=== PATIENT | female | born 1975 | race Caucasian/White ===

== ENCOUNTER 2025-03-13 15:37 | Emergency (ER) | payer BC, SELFPAY ==
[2025-03-13 15:51] VITALS: BP 156/84; PULSE 78; RESP 16; TEMP 37; O2SAT 97; BMI 27.3
--- NOTE | 2025-03-13 18:33 | DI.CT.S_ITS ---
PROCEDURE: CT LUMBAR SPINE W CON INDICATIONS: post back pump drainage TECHNIQUE: After the administration of intravenous Isovue contrast, 3 mm thick sections acquired through the levels of interest. Sagittal and coronal reformats were then constructed. For radiation dose reduction, the following was used: automated exposure control. COMPARISON: None. FINDINGS: Image quality: Motion artifact. Bones: Multilevel degenerative changes with disc height loss, vacuum disc phenomenon, osteophytosis and facet arthropathy. No high-grade osseous central canal or neural foraminal stenosis. Soft tissues: Spinal cord stimulator in place. No fluid collections are seen around the area of the pump. Cholecystectomy. Simple appearing renal cysts. Punctate nonobstructing bilateral renal calcifications. Splenule is noted. Simple appearing right ovarian cyst measuring 2.2 cm. IMPRESSION: Spinal cord stimulator in place. No fluid collections are noted around the area of the pump. Multilevel degenerative changes of the lumbar spine. Please see above for additional findings. Dictated by: Maxwell Small M.D. on 03/13/2025 at 19:53 Approved by: Maxwell Small M.D. on 03/13/2025 at 19:58
[2025-03-13 19:13] LABS: Add Manual Diff / Slide Review NO; Basophils Absolute Auto 0 /uL (0-100); Basophils Percent Auto 0.5 % (0-2); Eosinophils Absolute Auto 100 /uL (0-450); Eosinophils Percent Auto 1.8 % (2-4); Hematocrit 35.7 % (36-46); Hemoglobin 12.6 g/dL (12.0-16.0); Lymphocytes Absolute Auto 1700 /uL (1100-4500); Lymphocytes Percent Auto 25.5 % (25-40); Mean Corpuscular HGB Conc 35.2 % (30-36); Mean Corpuscular Hemoglobin 31.6 PG (26-34); Mean Corpuscular Volume 89.8 fL (80-100); Monocytes Absolute Auto 400 /uL (0-900); Monocytes Percent Auto 6.2 % (3-14); Neutrophils Absolute Auto 4500 /uL (1500-7000); Platelet Count 270 X10^3/uL (150-400); Red Blood Cell Count 3.98 X10^6/uL (4.0-5.2); Red Cell Distribution Width 15.3 % (11.6-14.8); White Blood Cell Count 6.8 X10^3/uL (4.5-11.0)
[2025-03-13 19:19] LABS: Lactate (Lactic Acid) 0.7 mmol/L (0.7-2.1)
[2025-03-13 19:23] LABS: Alanine Aminotransferase 42 IU/L (<35); Albumin 4.8 g/dL (3.5-5.0); Albumin Globulin Ratio 1.8 (1.0-2.8); Alkaline Phosphatase 61 U/L (38-126); Aspartate Aminotransferase 48 IU/L (14-36); BUN Creatinine Ratio 26.7 (6-22); Blood Urea Nitrogen 16 mg/dL (7-17); C-Reactive Protein Quant < 0.5 mg/dL (<1.0); Calcium 9.4 mg/dL (8.4-10.2); Carbon Dioxide 26 mmol/L (22-32); Chloride 103 mmol/L (98-107); Estimated Glomerular Filt Rate > 60 mL/min (>60); Globulin 2.6 g/dL (1.7-4.1); Glucose 91 mg/dL (70-100); HEMOLYSIS 26 (0-50); Potassium 3.9 mmol/L (3.4-5.1); Sodium 137 mmol/L (137-145); Total Protein 7.4 g/dL (6.3-8.2)
[2025-03-13 19:33] LABS: Erythrocyte Sedimentation Rate 5 MM/HR (0-20)
--- NOTE | 2025-03-13 20:21 | ED_ITS ---
HPI - Back Pain/Injury General Chief Complaint: Back Pain/Injury Stated Complaint: thinks seroma needs to be drained Time Seen by Provider: 03/13/25 20:18 Source: patient History of Present Illness HPI Narrative: Patient is a 49-year-old female history of degenerative disc disease had a pain pump replacement in [place] end of January. She reports that she has had recurrent postoperative seromas around the surrounding site. She has had it drained a couple of times getting about 100 cc off. Last night she noticed that she had swelling again. No fever or chills. No numbness tingling weakness no change in bowel or bladder habits. She reports excellent improvement in her back pain since the pump placement. She was very tearful and stressed. She just moved from [place] to the area continuing to have postoperative complications. She was given place that she can get pump refills however has not established care with anyone. Related Data Allergies Allergy/AdvReac Type Severity Reaction Status Date / Time buspirone [From BuSpar] Allergy Vomiting Verified 03/13/25 15:51 Patient History Social History Smoking Status: Never smoker Smoking Status: Never smoker Exam Initial Vital Signs Initial Vital Signs: Vital Signs Temperature 98.6 F 03/13/25 15:51 Pulse Rate 78 03/13/25 15:51 Respiratory Rate 16 03/13/25 15:51 Blood Pressure 156/84 H 03/13/25 15:51 Pulse Oximetry 97 03/13/25 15:51 Oxygen Delivery Method Room Air 03/13/25 15:51 GENERAL: Alert pleasant tearful 41-year-old female and in no acute distress. HEENT: Head atraumatic,EOMI, pupils reactive, face symmetric, moist mucous membranes CARDIOVASCULAR: Regular rate and rhythm without murmurs, rubs or gallops. RESPIRATORY: Breath sounds equal bilaterally, no wheezes rales or rhonchi. ABDOMEN: Soft, nontender. Normoactive bowel sounds all 4 quadrants. No guarding or rebound. EXTREMITIES: Normal range of motion, no clubbing or edema. Neurovascularly intact NEUROLOGICAL: Alert and oriented x4.Normal gait and speech. Cranial nerves II through XII grossly intact. Sensation in lower extremities intact able to stand SKIN: Incision site along the back noted left laterally she definitely has subcutaneous swelling without erythema it is nontender is blow audible. Consistent with seroma is fluid collection Course Orders Ordered: ED Orders 03/13/25 18:33 CT lumbar spine w con Stat 03/13/25 18:58 CBC Auto Diff [Complete Blood Count AUTO DIFF] Stat CMP [Comprehensive Metabolic Panel] Stat CRP [C-Reactive Protein Quant] Stat ESR [Erythrocyte Sedimentation Rate] Stat Lactate (Lactic Acid) Stat 03/13/25 19:27 Blood Culture Stat Discontinued Medications Ketorolac Tromethamine (Ketorolac 30 Mg/Ml Vial) 15 mg IV NOW ONE Stop: 03/13/25 20:19 Last Admin: 03/13/25 20:25 Dose: 15 mg Documented By: ELKIN Vital Signs Vital signs: Vital Signs - 8 hr 03/13/25 20:46 Pulse Rate 80 Respiratory Rate 18 Blood Pressure 131/91 H Pulse Oximetry 99 Oxygen Delivery Method Room Air MDM - Back Pain/Injury Lab Data 03/13/25 18:58 03/13/25 18:58 Labs: Lab Results 03/13/25 Range/Units 18:58 WBC 6.8 (4.5-11.0) X10^3/uL RBC 3.98 L (4.0-5.2) X10^6/uL Hgb 12.6 (12.0-16.0) g/dL Hct 35.7 L (36-46) % MCV 89.8 (80-100) fL MCH 31.6 (26-34) PG MCHC 35.2 (30-36) % RDW 15.3 H (11.6-14.8) % Plt Count 270 (150-400) X10^3/uL Neut % (Auto) 66.0 (50-75) % Lymph % (Auto) 25.5 (25-40) % [place] % (Auto) 6.2 (3-14) % Eos % (Auto) 1.8 L (2-4) % Baso % (Auto) 0.5 (0-2) % Neut # (Auto) 4500 (1713-8993) /uL Lymph # (Auto) 1700 (6448-2836) /uL [place] # (Auto) 400 (0-900) /uL Eos # (Auto) 100 (0-450) /uL Baso # (Auto) 0 (0-100) /uL ESR 5 (0-20) MM/HR Sodium 137 (137-145) mmol/L Potassium 3.9 (3.4-5.1) mmol/L Chloride 103 (98-107) mmol/L Carbon Dioxide 26 (22-32) mmol/L BUN 16 (7-17) mg/dL Creatinine 0.60 (0.52-1.04) mg/dL Estimated GFR > 60 (>60) mL/min BUN/Creatinine Ratio 26.7 H (6-22) Glucose 91 (70-100) mg/dL Lactate 0.7 (0.7-2.1) mmol/L Calcium 9.4 (8.4-10.2) mg/dL Total Bilirubin 1.0 (0.2-1.3) mg/dL AST 48 H (14-36) IU/L ALT 42 H (<35) IU/L Alkaline Phosphatase 61 (38-126) U/L C-Reactive Protein < 0.5 (<1.0) mg/dL Total Protein 7.4 (6.3-8.2) g/dL Albumin 4.8 (3.5-5.0) g/dL Globulin 2.6 (1.7-4.1) g/dL Albumin/Globulin Ratio 1.8 (1.0-2.8) Imaging Data Ct lumbar w contrast: Radiologist's Impression: PROCEDURE: CT LUMBAR SPINE W CON INDICATIONS: post back pump drainage TECHNIQUE: After the administration of intravenous Isovue contrast, 3 mm thick sections acquired through the levels of interest. Sagittal and coronal reformats were then constructed. For radiation dose reduction, the following was used: automated exposure control. COMPARISON: None. FINDINGS: Image quality: Motion artifact. Bones: Multilevel degenerative changes with disc height loss, vacuum disc phenomenon, osteophytosis and facet arthropathy. No high-grade osseous central canal or neural foraminal stenosis. Soft tissues: Spinal cord stimulator in place. No fluid collections are seen around the area of the pump. Cholecystectomy. Simple appearing renal cysts. Punctate nonobstructing bilateral renal calcifications. Splenule is noted. Simple appearing right ovarian cyst measuring 2.2 cm. IMPRESSION: Spinal cord stimulator in place. No fluid collections are noted around the area of the pump. Multilevel degenerative changes of the lumbar spine. Please see above for additional findings. Dictated by: Maxwell Small M.D. on 03/13/2025 at 19:53 MDM Narrative Medical decision making narrative: Patient is a 49-year-old female history degenerative disc disease with pain pump placement. She definitely has subcutaneous skin swelling to the left lateral area. It is non erythematous nontender. Blood work has been reviewed overall reassuring. She has no leukocytosis normal inflammatory markers. ESR 5, CRP less than 0.5. CT does not show any evidence of fluid collection around the pain pump. Also noted on the CT is no soft tissue swelling. Patient neurovascularly intact no concern for cauda equina. No concern for sepsis. Not able to get an MRI due to pain pump. Discussed with her that if she needs an MRI maybe to go to different facility. Given a shot of Toradol here in the ED, supportive care only. She has a back brace. Discussion about signs and symptoms and when to return to ED. Patient verbalized understanding. Discharge Plan Departure Patient Disposition: Home Clinical Impression: Postoperative seroma Activity Restrictions/Additional Instructions: *You have been diagnosed with postoperative seroma *What to do: At this time continue supportive care compression try ice. *Continue to take medications as directed *Follow up with your primary care provider in 2-3 days or call [phone] May trying get referral to Dr. Cohen'rj or orthopedic [facility] here in [facility] *Return to ER if you should have increasing pain swelling numbness tingling weakness loss of urine fever or any new, worsening or concerning symptoms Stand Alone Forms: Patient Portal/API/Survey
[2025-03-13] MEDS: KETOROLAC 30 MG/ML VIAL 15 MG IV (20:25)
[2025-03-13 20:46] VITALS: BP 131/91; PULSE 80; RESP 18; O2SAT 99
== END 2025-03-13 20:49 | disposition home or self-care (01) ==
PROVIDERS: Emergency Provider Emergency Medicine
DX: L76.34 Postprocedural seroma of skin and subcutaneous tissue following other procedure (principal)
CPT/HCPCS: 36415; 72132; 80053; 83605; 85025; 85651; 86140; 87040; 99284; J1885; Q9967

== ENCOUNTER 2025-09-27 13:20 | Emergency (ER) | payer OTHER, SELFPAY ==
[2025-09-27 13:29] VITALS: BP 133/77; PULSE 85; RESP 18; TEMP 37.1; O2SAT 98; BMI 30.2
--- NOTE | 2025-09-27 13:34 | DI.RAD.S_ITS ---
PROCEDURE: XR ANKLE LT MIN 3V INDICATIONS: pain/swelling TECHNIQUE: 3 views of the ankle were acquired. COMPARISON: None. FINDINGS: Bones: No fractures or dislocations. Ankle mortise is normally aligned. No suspicious bony lesions. Soft tissues: No tibiotalar joint effusion. Achilles tendon appears normal. IMPRESSION: No acute bony abnormality or significant effusion. Dictated by: Christo Walden M.D. on 09/27/2025 at 14:29 Approved by: Christo Walden M.D. on 09/27/2025 at 14:29
--- NOTE | 2025-09-27 14:44 | ED.EXTPRO ---
HPI - Extremity Problem <Leighton Arroyo PA-C - Last Filed: 10/18/25 18:48> General Chief complaint: Extremity Problem,Nontraumatic Stated complaint: Low L leg, swollen, pn Time Seen by Provider: 09/27/25 14:39 Source: patient Mode of arrival: Ambulatory History of Present Illness HPI Narrative: This is a 50-year-old female presenting to the emergency department due to left calf for the last 2 months. She states that it may have began after she did some heavy moving. She states that the distal portion of her left calf has been swollen and after showers she reports some seeing some redness. Denies any numbness but does have some pain with range motion of the foot. No acute blunt injury to the area. Related Data Allergies Allergy/AdvReac Type Severity Reaction Status Date / Time buspirone (From [place]) Allergy Vomiting Verified 03/13/25 15:51 Review of Systems <Leighton Arroyo PA-C - Last Filed: 10/18/25 18:48> Review of Systems Narrative: GENERAL: Denies chills, fatigue, malaise, fever, sweats. HEENT: Denies sinus pain, ear pain, sore throat, difficulty swallowing, dizziness. RESPIRATORY: Denies dyspnea, cough, wheezing, hemoptysis, sputum. CARDIOVASCULAR: Denies chest pain, palpitations, orthopnea, edema, GASTROINTESTINAL: Denies nausea, vomiting, abdominal pain, diarrhea, constipation, melena. : Denies dysuria, frequency, incontinence, hematuria, urinary retention. MUSCULOSKELETAL: Reports left calf pain and swelling otherwise denies weakness, joint pain, or bony pain SKIN: Denies rash, skin lesions, or other NEUROLOGIC: Denies weakness, headache, numbness, change in speech, confusion, seizures, incoordination. PSYCHIATRIC: No concerning psychosocial issues. 12 point review of systems is negative except for those stated above Patient History <SHIRA Almeida Last Filed: 10/18/25 18:48> tobacco type: vaping Exam <SHIRA Almeida Last Filed: 10/18/25 18:48> Narrative Exam Narrative: GENERAL: Well-developed patient, in mild distress. HEAD: Atraumatic. Normocephalic. EYES: Pupils equal round and reactive. Extraocular motions intact. No scleral icterus. No injection or drainage. ENT: Nose without bleeding, purulent drainage. Throat without erythema, tonsillar hypertrophy or exudate. Airway patent. NECK: Trachea midline. Non tender EXTREMITIES: Area of edema to the left medial distal calf. No erythema. Neurovascularly intact throughout. Tender to palpation. No significant bony ankle tenderness to palpation. NEURO: AOx3. SKIN: No rash or erythema of visible areas Initial Vital Signs Initial Vital Signs: Vital Signs Temperature 98.8 F 09/27/25 13:29 Pulse Rate 85 09/27/25 13:29 Respiratory Rate 18 09/27/25 13:29 Blood Pressure 133/77 09/27/25 13:29 Pulse Oximetry 98 09/27/25 13:29 Oxygen Delivery Method Room Air 09/27/25 13:29 <Thanh Huddleston MD - Last Filed: 10/18/25 08:58> Initial Vital Signs Initial Vital Signs: Vital Signs Temperature 98.8 F 09/27/25 13:29 Pulse Rate 85 09/27/25 13:29 Respiratory Rate 18 09/27/25 13:29 Blood Pressure 133/77 09/27/25 13:29 Pulse Oximetry 98 09/27/25 13:29 Oxygen Delivery Method Room Air 09/27/25 13:29 Course <Leighton Arroyo PA-C - Last Filed: 10/18/25 18:48> Orders Ordered: ED Orders 09/27/25 13:34 XR ankle LT min 3V Stat 09/27/25 14:57 US periph venous low extrem lt Stat Vital Signs Vital signs: Vital Signs - 8 hr 09/27/25 13:29 09/27/25 15:37 Temperature 98.8 F Pulse Rate 85 Pulse Rate [Left Dorsalis Pedis] 76 Respiratory Rate 18 Blood Pressure 133/77 Pulse Oximetry 98 Oxygen Delivery Method Room Air <Thanh Huddleston MD - Last Filed: 10/18/25 08:58> Orders Ordered: ED Orders 09/27/25 13:34 XR ankle LT min 3V Stat 09/27/25 14:57 US periph venous low extrem lt Stat Vital Signs Vital signs: Vital Signs - 8 hr 09/27/25 13:29 09/27/25 15:37 Temperature 98.8 F Pulse Rate 85 Pulse Rate [Left Dorsalis Pedis] 76 Respiratory Rate 18 Blood Pressure 133/77 Pulse Oximetry 98 Oxygen Delivery Method Room Air MDM - Extremity (Nontraumatic) <Leighton Arroyo PA-C - Last Filed: 10/18/25 18:48> MDM Narrative Medical decision making narrative: ED course: This is a 50-year-old female presents to the emergency department due to left ankle pain suspected be muscular in nature. Ultrasound negative for DVT, x-ray negative for fracture. Recommended supportive care. CC: Left ankle pain Complicating co-morbidities: None Data collected from: Previous notes Medical records reviewed: Patient was last seen in this emergency department 6 months ago due to a seroma. History of degenerative disc disease with a pain pump replacement 7 months ago. States that she was had recurrent postoperative seromas around the site. CT showed no fluid collections around the pump. Patient was given Toradol and discharge. Differential considered, but not limited to: Fracture, DVT, muscle strain Exam documented above, pertinent findings include: No concerning findings Lab Test results independently reviewed as above. Pertinent findings: None obtained Imaging studies independently reviewed: Ultrasound and x-ray unremarkable Scores Used: None MIPS Elements: None Consultations: None Treatments: None Re-evaluations: None Discussion: Discussed plan with the patient was comfortable with the plan Diagnosis: Muscle strain Disposition: see below, along with detailed discharge instructions that have been reviewed with patient as well as indications for ED re-evaluation and additional outpatient follow up Discharge Plan Departure Patient Disposition: Home Clinical Impression: Soft tissue injury Activity Restrictions/Additional Instructions: Thank you for coming to the [facility] Emergency Department today. The ultrasound showed no evidence of a blood clot. There was also no fluid collections noted by the technical staff engineer to your left ankle. I suspect this is soft tissue in nature and recommend you follow up with the PCP. Please return to the emergency department if you develop any significant edema or pain in the left ankle, chest pain, shortness breath or any other concerning signs or symptoms. I hope you feel better soon. Please follow up with your primary care provider within a week if your symptoms continue. If you do not have a primary care provider please contact the [facility] Resource line at [phone]. They will ask some questions about your medical history and help you get set up with a provider in the community. Stand Alone Forms: Patient Portal/API ED Sign-out <Thanh Huddleston MD - Last Filed: 10/18/25 08:58> Cosign ED Attending Cosignature Attestation: I was immediately available in the department for consultation. ?This documentation has been reviewed and I agree with assessment and plan. Supervised by Thanh Huddleston MD
--- NOTE | 2025-09-27 14:57 | DI.US.S_ITS ---
PROCEDURE: US PERIPH VENOUS LOW EXTREM LT INDICATIONS: r/o DVT TECHNIQUE: Real-time imaging, as well as color and pulse Doppler interrogation, were performed of the lower extremity deep veins from the inguinal ligament to the popliteal fossa, with documentation of the visualized calf veins. COMPARISON: None. FINDINGS: The common femoral, femoral, popliteal, and the visualized calf veins are normally compressible, and free of intraluminal thrombus. Color and pulse Doppler demonstrate normal phasic intraluminal flow. There is normal augmentation response to distal compression maneuver. IMPRESSION: Negative left lower extremity duplex venous ultrasound for DVT. Dictated by: Christo Walden M.D. on 09/27/2025 at 15:35 Approved by: Christo Walden M.D. on 09/27/2025 at 15:36
[2025-09-27 15:37] VITALS: PULSE 76
[2025-09-27 15:51] VITALS: BP 128/77; PULSE 79; RESP 18; TEMP 36.8; O2SAT 99
== END 2025-09-27 15:52 | disposition home or self-care (01) ==
PROVIDERS: Emergency Provider Physician Assistant Medical
DX: S86.902A Unspecified injury of unspecified muscle(s) and tendon(s) at lower leg level, left leg, initial encounter (principal); X58.XXXA Exposure to other specified factors, initial encounter
CPT/HCPCS: 73610; 93971; 99281; 99283

== ENCOUNTER → 2025-10-23 10:50 | Outpatient (CLI) | payer OTHER, SELFPAY ==
--- NOTE | 2025-10-23 10:56 | DI.RAD.S_ITS ---
PROCEDURE: XR LUMBAR SPINE MIN 4V INDICATIONS: BACK PAIN TECHNIQUE: 5 views of the lumbar spine were acquired, including bilateral oblique views. COMPARISON: [facility], CT, CT LUMBAR SPINE W CON, 03/13/2025, 18:45. FINDINGS: Bones: This patient has transitional lumbar anatomy. For the purposes of this examination, the level with the small right-sided rib is considered to be T12. By this numbering scheme, the L5 level is transitional and mildly sacralized. No vertebral body compression fractures. No suspicious bony lesions. Minimal dextroconvex scoliotic curvature is seen. No focal AP alignment abnormality is seen. There is moderate disc space narrowing seen at L2-L3 and L3-L4. At the superior endplate of L4, there is a Schmorl's node seen. At least moderate disc space narrowing can be seen at L5-S1. Lower lumbar spine facet arthropathy is seen. Soft tissues: Overlying bowel gas pattern is normal. No suspicious soft tissue calcifications. There is a pain pump present. Oblique images: No pars defects. IMPRESSION: Multiple levels of degenerative change are seen by plain film. Dictated by: Jason Foster M.D. on 10/23/2025 at 10:59 Approved by: Jason Foster M.D. on 10/23/2025 at 11:03
== END ==
PROVIDERS: PCP Family Medicine; Referring Provider Physical Medicine & Rehabilitation; Visit Provider Physical Medicine & Rehabilitation
DX: M47.817 Spondylosis without myelopathy or radiculopathy, lumbosacral region (principal); M51.46 Schmorl's nodes, lumbar region; M54.9 Dorsalgia, unspecified; Z97.8 Presence of other specified devices
CPT/HCPCS: 72110